=== PATIENT | male | born 1965 | race Caucasian/White ===

== ENCOUNTER 2017-03-01 16:45 | Emergency (ER) | payer SELFPAY ==
--- NOTE | 2017-03-01 18:23 | ER Document Report ---
ED General - General Chief Complaint: ETOH Abuse Stated Complaint: INTOXICATED Time Seen by Provider: 03/01/17 18:23 Mode of Arrival: Medic Information source: Patient, Emergency Med Personnel TRAVEL OUTSIDE OF THE [place] IN LAST 30 DAYS: No - HPI Patient complains to provider of: no complaints Notes: Patient was found in ditch intoxicated and brought to ER for evaluation. He has no complaints. - Related Data Allergies/Adverse Reactions: No Known Allergies Allergy (Verified 07/24/13 05:33) Past Medical History - Social History Smoking Status: Current Every Day Smoker Frequency of alcohol use: Heavy Drug Abuse: None Lives with: Other - homeless Family History: Reviewed & Not Pertinent - Past Medical History Cardiac Medical History: Reports: Hx Hypertension Musculoskeltal Medical History: Reports Hx Arthritis - gout - Immunizations Hx Diphtheria, Pertussis, Tetanus Vaccination: Yes Review of Systems - Review of Systems Constitutional: No symptoms reported EENT: No symptoms reported Cardiovascular: No symptoms reported Respiratory: No symptoms reported Gastrointestinal: No symptoms reported Genitourinary: No symptoms reported Male Genitourinary: No symptoms reported Musculoskeletal: No symptoms reported Skin: No symptoms reported Hematologic/Lymphatic: No symptoms reported Neurological/Psychological: No symptoms reported Physical Exam - Vital signs Vitals: Temp Pulse Resp BP Pulse Ox 97.9 F 102 H 18 131/86 H 96 03/01/17 16:52 03/01/17 16:52 03/01/17 16:52 03/01/17 16:52 03/01/17 16:52 Notes: PHYSICAL EXAMINATION: GENERAL: intoxicated, well-nourished and in no acute distress. HEAD: Atraumatic, normocephalic. EYES: Pupils equal round and reactive to light, extraocular movements intact, sclera anicteric, conjunctiva are normal. ENT:Moist mucous membranes. NECK: Normal range of motion, supple without lymphadenopathy LUNGS: Breath sounds clear to auscultation bilaterally and equal. No wheezes rales or rhonchi. HEART: Regular rate and rhythm without murmurs ABDOMEN: Soft, nontender, nondistended abdomen. No guarding, no rebound. No masses appreciated. Musculoskeletal: Normal range of motion, no pitting or edema. No cyanosis. NEUROLOGICAL: Cranial nerves grossly intact. PSYCH: Normal mood, normal affect. SKIN: Warm, Dry, normal turgor, no rashes or lesions noted. Course - Re-evaluation Re-evalutation: 03/01/17 23:07 Patient is alert to self and year. He did not realize he was in the hospital until I mentioned it. He states he is homeless and he was trying to get to [facility] [place] he drank too much. I asked if he had anybody who he would like us to call to pick him up. He states no he just wants to be discharged. He has no complaints. - Vital Signs Vital signs: Temp Pulse Resp BP Pulse Ox 97.9 F 102 H 18 131/86 H 96 03/01/17 16:52 03/01/17 16:52 03/01/17 16:52 03/01/17 16:52 03/01/17 16:52 Discharge - Discharge Clinical Impression: Alcohol abuse Condition: Stable Disposition: HOME, SELF-CARE Additional Instructions: return to the emergency department if you have any concerns. Referrals: FEDERICO CHANDRA MD [COMMUNITY BASED STAFF] - Follow up as needed
[2017-03-01 23:11] VITALS: BP 164/74
== END 2017-03-01 23:13 | disposition home or self-care (01) ==
LOC: ER 16:45
DX: F10.129 Alcohol abuse with intoxication, unspecified (principal); F17.200 Nicotine dependence, unspecified, uncomplicated; I10 Essential (primary) hypertension; Z59.0 Homelessness
CPT/HCPCS: 99284

== ENCOUNTER 2017-03-02 04:42 | Emergency (ER) | payer SELFPAY ==
--- NOTE | 2017-03-02 05:09 | ER Document Report ---
ED General - General Chief Complaint: ETOH Abuse Stated Complaint: ETOH Time Seen by Provider: 03/02/17 04:55 Notes: Patient is 51-year-old male who presents with alcohol intoxication. He was recently discharged from hospital. After of the hospital he went out and drank more alcohol and then called the police and try to get in the car. Please therefore called an ambulance and brought him here. He has no other complaints other than being drunk. He denies any pain. Denies any injuries. He has no further concerns. TRAVEL OUTSIDE OF THE [place] IN LAST 30 DAYS: No - Related Data Allergies/Adverse Reactions: No Known Allergies Allergy (Verified 03/02/17 04:48) Past Medical History - Social History Smoking Status: Current Every Day Smoker Frequency of alcohol use: Heavy Drug Abuse: None Family History: Reviewed & Not Pertinent Patient has suicidal ideation: No Patient has homicidal ideation: No - Past Medical History Cardiac Medical History: Reports: Hx Hypertension Renal/ Medical History: Denies: Hx Peritoneal Dialysis Musculoskeltal Medical History: Reports Hx Arthritis - gout - Immunizations Hx Diphtheria, Pertussis, Tetanus Vaccination: Yes Review of Systems - Review of Systems -: Yes ROS unobtainable due to patient's medical condition - Limited due to patient's alcohol intoxication. Physical Exam - Notes Notes: General Appearance: Awake alert but obviously very intoxicated with alcohol. Patient smells of urine from where he has urinated on himself. Vitals: reviewed, See vital signs table. Head: no swelling or tenderness to the head Eyes: PERRL, EOMI, Conjuctiva clear Mouth: No decreasd moisture Lungs: No wheezing, No rales, No rhonci, No accessory muscle use, good air exchange bilaterally. Heart: Normal rate, Regular rythm, No murmur, no rub Abdomen: Normal BS, soft, No rigidity, No abdominal tenderness, No guarding, no rebound, no abdominal masses, no organomegaly Extremities: strength 5/5 in all extremities, good pulses in all extremities, no swelling or tenderness in the extremities, no edema. Skin: warm, dry, appropriate color, no rash Neuro: Patient is slurred from alcohol intoxication. Is oriented times person and place. Patient moves all extremities without difficulty. Distal sensation intact. Cranial nerves II through XII are intact with exception of slurred speech from intoxication. Discharge - Discharge Clinical Impression: Alcohol abuse Additional Instructions: Please try to cut back on your alcohol intake. Continued use of alcohol can lead to or severe health complications. Please follow up with [facility] or another alcoholic rehabilitation program. I have added a list that has some resources, such as [facility], that help with alcohol abuse. PLease return to the ER immediately if you have severe depression, signs of alcohol withdrawl, or thoughts of suicide. Signs of alcohol withdrawl include symptoms such as seizures, recurrent vomiting, fast heart beat, and tremor.
[2017-03-02 11:16] VITALS: BP 114/73
== END 2017-03-02 12:03 | disposition home or self-care (01) ==
LOC: ER 04:42
DX: F10.10 Alcohol abuse, uncomplicated (principal); I10 Essential (primary) hypertension; F17.200 Nicotine dependence, unspecified, uncomplicated
CPT/HCPCS: 99284

== ENCOUNTER 2019-08-27 09:18 | Emergency (ER) | payer SELFPAY ==
--- NOTE | 2019-08-27 10:30 | ER Document Report ---
ED General - General Chief Complaint: ETOH Abuse Stated Complaint: FEVER/COUGH Time Seen by Provider: 08/27/19 10:05 TRAVEL OUTSIDE OF THE [place] IN LAST 30 DAYS: No - HPI Notes: Patient is a 54-year-old male who presents to the emergency department for evaluation. He is intoxicated, and a difficult historian. From what I can gather, the patient was on the side of the road. He was picked up by [employer], then evaluated by EMS. He was brought to [facility] [place] where he was found to be too intoxicated to stay there, so he presents here to the emergency department for further evaluation. The patient told EMS he had a fever and cough. He told me that he thought he may have had a fever in the last 2 weeks, has a chronic cough, states maybe is a little bit worse. He denies any pain at this time. I try to get more information from him regarding his relapse into drinking. He states he had been sober for 2 years. He then starts crying, told me "my mother never treated me well" and the interview degraded from there. He is otherwise not very forthcoming in regards to his history. He denies use of any other illicit drugs. He denies suicidal or homicidal ideation. He does state to me "maybe is just time for me to be in this world anymore." He is denying any plan to hurt himself or others. No visual or auditory hallucinations. - Related Data Allergies/Adverse Reactions: No Known Allergies Allergy (Verified 03/02/17 04:48) Home Medications: "water pill". BP medication Past Medical History - General Information source: Patient - Social History Smoking Status: Current Some Day Smoker Frequency of alcohol use: Heavy Family History: Reviewed & Not Pertinent - Past Medical History Cardiac Medical History: Reports: Hx Hypertension Renal/ Medical History: Denies: Hx Peritoneal Dialysis Musculoskeletal Medical History: Reports Hx Arthritis - gout - Immunizations Hx Diphtheria, Pertussis, Tetanus Vaccination: Yes Review of Systems - Review of Systems Constitutional: See HPI Neurological/Psychological: See HPI Physical Exam - Vital signs Vitals: Temp Pulse Resp BP Pulse Ox 98.4 F 90 16 135/97 H 97 08/27/19 09:31 08/27/19 09:31 08/27/19 09:31 08/27/19 09:31 08/27/19 09:31 - Notes Notes: This is a disheveled 54-year-old male who appears his stated age. He smells strongly of alcohol, words are slurred consistent with intoxication. His mood is labile, he goes from pleasant to mildly agitated to tearful in approximately 1 minute. He does not appear to be reacting to internal stimuli. Vital signs reviewed, please refer to chart. Head is normocephalic, atraumatic. Pupils equal round, reactive to light. Neck is supple without meningismus. Heart is regular rate and rhythm. Lungs are clear to auscultation bilaterally. Abdomen is soft, nontender, normoactive bowel sounds throughout. Extremities without cyanosis, clubbing. Posterior calves are nontender. Peripheral pulses are equal. Skin is warm and dry. Patient is awake, alert, neurological exam is consistent with intoxication. He has no gross facial asymmetry. Moves all 4 extremities spontaneously. Course - Re-evaluation Re-evalutation: 08/27/19 10:29 Patient presents to the emergency department for evaluation. In short, this patient has a known history of alcohol abuse, has relapsed from 2 years of sobriety. He does clearly have some depression associated with this. I do believe he would be a good candidate for [facility] if he can be medically cleared. Laboratory investigations, EKG, chest x-ray ordered. Given his report of fever and cough, I am inclined to perform a rapid COVID test to clear him for possible placement. Patient is currently stable, we will continue to monitor. 08/27/19 12:00 Patient's level of intoxication does not seem congruent with an blood alcohol of 234. I will order a CT scan of the head for further evaluation. 08/27/19 16:38 Patient's work-up here is unremarkable with the exception of his alcohol. He was observed here for some time and became more clinically sober. The patient does not want help with his alcoholism. He states he wants to leave. He was able to walk without difficulty. 08/27/19 16:43 Please note patient's rapid COVID test was negative. He states that he does not have any significant cough at this time, now that he is more sober. He states he was hot and cold, was not really sure of any fevers. I am not overly concerned about this, his test again for COVID was negative. - Vital Signs Vital signs: Temp Pulse Resp BP Pulse Ox 98.0 F 68 20 130/70 H 100 08/27/19 16:31 08/27/19 16:31 08/27/19 16:31 08/27/19 16:31 08/27/19 16:31 - Laboratory Result Diagrams: 08/27/19 10:50 08/27/19 10:50 Laboratory results interpreted by me: 08/27/19 08/27/19 08/27/19 10:50 10:50 11:23 RBC 3.70 L Hgb 12.5 L Hct 35.5 L MCH 33.7 H Plt Count 109 L Chloride 109 H Calcium 7.9 L AST 98 H ALT 60 H Urine Blood SMALL H Salicylates < 1.0 L Acetaminophen < 10 L - Diagnostic Test Radiology reviewed: Reports reviewed Radiology results interpreted by me: 08/27/19 11:35 Chest X-Ray 08/27/19 10:24 IMPRESSION: No evidence of acute cardiopulmonary abnormality. - EKG Interpretation by Me Additional EKG results interpreted by me: 08/27/19 11:36 Sinus mechanism with a rate of 73 bpm. Normal axis and intervals. No acute ST changes concerning for ischemia or infarction. Discharge - Discharge Clinical Impression: Alcohol intoxication Qualifiers: Complication of substance-induced condition: uncomplicated Qualified Code(s): F10.920 - Alcohol use, unspecified with intoxication, uncomplicated Condition: Stable Disposition: HOME, SELF-CARE Instructions: Acute Alcohol Intoxication ([facility]), Chronic Alcoholism ([facility]) Additional Instructions: Please try to stop drinking. If you change your mind regarding help, you can go to [facility] for further care. Return to the ED with worsening or new concerning symptoms of any sort.
--- NOTE | 2019-08-27 10:58 | RADIOLOGY REPORT (SQ) ---
EXAM DESCRIPTION: CHEST SINGLE VIEW IMAGES COMPLETED DATE/TIME: 08/27/2019 10:49 am REASON FOR STUDY: cough, dyspnea COMPARISON: 09/08/2012 EXAM PARAMETERS: NUMBER OF VIEWS: One view. TECHNIQUE: Single frontal radiographic view of the chest acquired. RADIATION DOSE: NA LIMITATIONS: None. FINDINGS: LUNGS AND PLEURA: Low lung volumes results in bronchovascular crowding. No focal consolid ation, pleural effusion, or pneumothorax. MEDIASTINUM AND HILAR STRUCTURES: No masses. Contour normal. HEART AND VASCULAR STRUCTURES: Heart normal in size. Normal vasculature. BONES: No acute findings. HARDWARE: None in the chest. OTHER: No other significant finding. IMPRESSION: No evidence of acute cardiopulmonary abnormality. TECHNICAL DOCUMENTATION: JOB ID: [id number] 2010 [employer]- All Rights Reserved Reading location - IP/workstation name: [email or web address]
[2019-08-27 11:40] LABS: ABSOLUTE EOSINOPHILS # (AUTO) 0.1 10^3/uL (0.0-0.6); ABSOLUTE LYMPHOCYTES (AUTO) 1.4 10^3/uL (0.5-4.7); ABSOLUTE MONOCYTES (AUTO) 0.5 10^3/uL (0.1-1.4); ABSOLUTE NEUT (AUTO) 2.7 10^3/uL (1.7-8.2); BASOPHILS % (AUTO) 0.7 % (0-2); EOSINOPHILS % (AUTO) 1.3 % (0-6); HEMATOCRIT 35.5 % (37.9-51.0); HEMOGLOBIN 12.5 g/dL (13.5-17.0); LYMPHOCYTES % (AUTO) 29.8 % (13-45); MEAN CORPUSCULAR HEMOGLOBIN 33.7 pg (27.0-33.4); MEAN CORPUSCULAR HGB CONC 35.2 g/dL (32.0-36.0); MEAN CORPUSCULAR VOLUME 96 fl (80-97); MONOCYTES % (AUTO) 10.4 % (3-13); PLATELET COUNT 109 10^3/uL (150-450); RED CELL DISTRIBUTION WIDTH 13.7 % (11.5-14.0); SEGMENTED NEUTROPHILS % (AUTO) 57.8 % (42-78); TOTAL CELLS COUNTED % (AUTO) 100 %; WHITE BLOOD COUNT 4.6 10^3/uL (4.0-10.5)
[2019-08-27 11:50] LABS: ALBUMIN 3.7 g/dL (3.5-5.0); ALCOHOL 234 mg/dL (NONE DETECTED); ALKALINE PHOSPHATASE 64 U/L (38-126); ANION GAP 5 (5-19); ASPARTATE AMINO TRANSFERASE 98 U/L (17-59); BILIRUBIN,TOTAL 0.7 mg/dL (0.2-1.3); BLOOD UREA NITROGEN 8 mg/dL (7-20); CALCIUM 7.9 mg/dL (8.4-10.2); CARBON DIOXIDE 24 mmol/L (22-30); CHLORIDE 109 mmol/L (98-107); GLUCOSE 109 mg/dL (75-110); POTASSIUM 4.6 mmol/L (3.6-5.0); TOTAL PROTEIN 6.7 g/dL (6.3-8.2)
[2019-08-27 11:51] LABS: APPEARANCE,URINE CLEAR; BILIRUBIN,URINE NEGATIVE (NEGATIVE); COLOR,URINE YELLOW; GLUCOSE, URINE NEGATIVE (NEGATIVE); KETONES,URINE NEGATIVE (NEGATIVE); LEUKOCYTE ESTERASE,URINE NEGATIVE (NEGATIVE); NITRITE,URINE NEGATIVE (NEGATIVE); PROTEIN,URINE NEGATIVE (NEGATIVE); UROBILINOGEN,URINE NEGATIVE mg/dL (<2.0)
[2019-08-27 11:54] LABS: ACETAMINOPHEN < 10 ug/mL (10-30); SALICYLATE < 1.0 mg/dL (2.0-20.0)
[2019-08-27 12:11] LABS: URINE AMPHETAMINES SCREEN NEGATIVE; URINE BARBITURATES SCREEN NEGATIVE; URINE BENZODIAZEPINES SCREEN NEGATIVE; URINE COCAINE SCREEN NEGATIVE; URINE MARIJUANA (THC) SCREEN NEGATIVE; URINE METHADONE SCREEN NEGATIVE; URINE PHENCYCLIDINE SCREEN NEGATIVE
--- NOTE | 2019-08-27 13:31 | RADIOLOGY REPORT (SQ) ---
EXAM DESCRIPTION: CT HEAD WITHOUT IMAGES COMPLETED DATE/TIME: 08/27/2019 1:18 pm REASON FOR STUDY: Altered mental status, EtOH COMPARISON: 10/20/2007 TECHNIQUE: Axial images acquired through the brain without intravenous contrast. Images reviewed wi th bone, brain and subdural windows. Additional sagittal and coronal reconstructions were generated. Images stored on PACS. All CT scanners at this facility use dose modulation, iterative reconstruction, and/or weight based d osing when appropriate to reduce radiation dose to as low as reasonably achievable (ALARA). [facility]: Dose Right [facility]: CareDose [facility]: Dose Right [facility]: Teradose 4D [facility]: Smart Brand [employer] RADIATION DOSE: CT Rad equipment meets quality standard of care and radiation dose reduction techniq ues were employed. CTDIvol: 53.2 mGy. DLP: 1044 mGy-cm. mGy. LIMITATIONS: None. FINDINGS: VENTRICLES: Normal size and contour. CEREBRUM: No masses. No hemorrhage. No midline shift. No evidence for acute infarction. Normal gra y/white matter differentiation. No areas of low density in the white matter. CEREBELLUM: Incidental note is made of the appearance of superior vermian atrophy. No masses. No he morrhage. No alteration of density. No evidence for acute infarction. EXTRAAXIAL SPACES: No fluid collections. No masses. ORBITS AND GLOBE: No intra- or extraconal masses. Normal contour of globe without masses. CALVARIUM: No fracture. PARANASAL SINUSES: No fluid or mucosal thickening. SOFT TISSUES: No mass or hematoma. OTHER: No other significant finding. IMPRESSION: No acute intracranial findings. EVIDENCE OF ACUTE STROKE: NO. COMMENT: Quality ID # [id number]: Final reports with documentation of one or more dose reduction techniques (e.g., Automated exposure control, adjustment of the mA and/or kV according to patient size, use of iterative reconstruction technique) TECHNICAL DOCUMENTATION: JOB ID: [id number] 2010 [employer]- All Rights Reserved Reading location - IP/workstation name: [email or web address]
[2019-08-27 16:33] VITALS: BP 130/70
[2019-08-27] MEDS ORDERED: NORMAL SALINE 250 ML IV ONE (16:36)
--- NOTE | 2019-08-27 18:35 | EKG REPORT ---
SEVERITY:- NORMAL ECG - SINUS RHYTHM : Confirmed by: Donnie Garcia MD 27-Aug-2019 18:34:11
== END 2019-08-27 17:02 | disposition home or self-care (01) ==
LOC: ER 09:18
DX: F10.920 Alcohol use, unspecified with intoxication, uncomplicated (principal); F32.9 Major depressive disorder, single episode, unspecified; R50.9 Fever, unspecified; R05 Cough; F17.200 Nicotine dependence, unspecified, uncomplicated; Z20.828 Contact with and (suspected) exposure to other viral communicable diseases
CPT/HCPCS: 93005; 99285; 36415; 80307 ×4; 85025; 87635; 80053; 81001; 71045; 70450; 93010; C9803